=== PATIENT | female | born 1935 | race Caucasian/White ===

== ENCOUNTER 2016-06-17 17:21 | Emergency (ER) | payer MEDICARE, MEDICAID ==
[2016-06-17 17:21] VITALS: BMI 28.7
[2016-06-17 18:23] VITALS: TEMP 98.6
[2016-06-17 19:43] LABS: AUTOMATED BASOPHIL 1.4 % (0-2); AUTOMATED EOSINOPHIL 1.3 % (0-5); AUTOMATED LYMPH 23.5 % (17-44); AUTOMATED MONOCYTE 6.6 % (3-10); AUTOMATED NEUTROPHIL 67.2 % (45-76); MPV 8.5 fL (7.4-10.4)
[2016-06-17 19:46] LABS: CA OXALATE 3+; LEUKOCYTES/URINE 2+ (NEGATIVE); NITRITE/URINE NEG (NEGATIVE); URINE OCCULT BLOOD NEG (NEG/TRACE)
[2016-06-17 19:48] LABS: RBC/URINE 0-2 (0-5)
[2016-06-17 19:59] LABS: PARTIAL THROMB. TIME 21.2 SEC (22-35)
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
[2016-06-17 20:03] LABS: BLOOD UREA NITROGEN 16 MG/DL (7-17); CALC CORRECTED 10.9 MG/DL (8.4-10.2); CALCIUM 10.7 MG/DL (8.4-10.2); CALCULATED OSMOLALITY 272 MOs/Kg (270-290); CHLORIDE 105 mEq/L (98-107); GLUCOSE 106 MG/DL (70-99); SODIUM LEVEL 141 mEq/L (137-146); TOTAL PROTEIN 7.4 G/DL (6.3-8.2)
--- NOTE | 2016-06-17 21:22 | DIRPT ---
CLINICAL DATA: Right temporal headache. Dizziness and blurry vision in the right eye. EXAM: CT HEAD WITHOUT CONTRAST TECHNIQUE: Contiguous axial images were obtained from the base of the skull through the vertex without intravenous contrast. COMPARISON: 10/25/2015 FINDINGS: Mild diffuse cerebral atrophy. No ventricular dilatation. No mass effect or midline shift. No abnormal extra-axial fluid collections. Hou-white matter junctions are distinct. Basal cisterns are not effaced. No evidence of acute intracranial hemorrhage. No depressed skull fractures. Postoperative changes in the paranasal sinuses consistent with bilateral antrectomies and turbinatectomies. No significant opacification of the paranasal sinuses or mastoid air cells. Right frontal sinus is hypo aerated. IMPRESSION: No acute intracranial abnormalities. Mild chronic atrophy. Electronically Signed By: Wesley Rayo M.D. On: 06/17/2016 21:19
[2016-06-17] MEDS ORDERED: METOPROLOL TARTRATE 25 MG TAB PO ONE (22:01)
[2016-06-17] MEDS ORDERED: OXYCODONE HCL 5 MG TABLET PO ONE (22:02)
[2016-06-17 22:34] VITALS: BP 213/99; PULSE 77
== END 2016-06-17 22:22 | disposition home or self-care (01) ==
LOC: ED 17:21
DX: I10 Essential (primary) hypertension (principal)
CPT/HCPCS: 36415; 70450; 80053; 81001; 83880; 84484; 85025; 85610; 85651; 85730; 86140; 87086; 99283; A9270; J3490